=== PATIENT | female | born 1945 | race Caucasian/White ===

== ENCOUNTER → 2016-06-29 | Outpatient (CLI) | payer OTHER, BC ==
[~2016-06-29] MED LIST: LIDOCAINE 1% 30 ML SDV ONE; NA BICARBONATE 50 MEQ/50 ML VIAL ONE
== END ==
LOC: FIMAGING 13:03
PROVIDERS: ATTEND Internal Medicine Hematology & Oncology
PROC: 0W9F3ZZ Drainage of Abdominal Wall, Percutaneous Approach (ICD-10-PCS; principal; 2016-06-29)
DX: R18.0 Malignant ascites (principal); C50.919 Malignant neoplasm of unspecified site of unspecified female breast

== ENCOUNTER → 2018-05-03 | Outpatient (CLI) | payer OTHER, BC | LOC: FIMAGING 16:03 | PROVIDERS: ATTEND Physician Assistant | DX: J90 Pleural effusion, not elsewhere classified (principal); J98.4 Other disorders of lung ==

== ENCOUNTER → 2018-05-22 | Outpatient (CLI) | payer OTHER, BC | LOC: FLAB 09:19 | PROVIDERS: ATTEND Physician Assistant Surgical | DX: J90 Pleural effusion, not elsewhere classified (principal); R91.8 Other nonspecific abnormal finding of lung field; C50.919 Malignant neoplasm of unspecified site of unspecified female breast ==

== ENCOUNTER → 2018-06-25 | Day surgery (SDC) | payer OTHER, BC | END | disposition home or self-care (01) | LOC: FIMAGING 12:53 | PROVIDERS: ATTEND Physician Assistant | DX: T85.9XXA Unspecified complication of internal prosthetic device, implant and graft, initial encounter (principal); Z53.20 Procedure and treatment not carried out because of patient's decision for unspecified reasons; C50.011 Malignant neoplasm of nipple and areola, right female breast; C50.311 Malignant neoplasm of lower-inner quadrant of right female breast; R18.0 Malignant ascites ==

== ENCOUNTER → 2018-06-26 | Day surgery (SDC) | payer OTHER, BC | END | disposition home or self-care (01) | LOC: FIMAGING 17:22 | PROVIDERS: ATTEND Physician Assistant | PROC: BW111ZZ Fluoroscopy of Abdomen and Pelvis using Low Osmolar Contrast (ICD-10-PCS; principal; 2018-06-26) | PROC: BW40ZZZ Ultrasonography of Abdomen (ICD-10-PCS; principal; 2018-06-26) | PROC: 0W9G3ZZ Drainage of Peritoneal Cavity, Percutaneous Approach (ICD-10-PCS; principal; 2018-06-26) | DX: T85.628A Displacement of other specified internal prosthetic devices, implants and grafts, initial encounter (principal); R18.0 Malignant ascites; C50.011 Malignant neoplasm of nipple and areola, right female breast; C50.311 Malignant neoplasm of lower-inner quadrant of right female breast ==